=== PATIENT | female | born 1965 | race Caucasian/White ===

== ENCOUNTER → 2018-11-19 | Outpatient (CLI) | payer OTHER ==
--- NOTE | 2018-11-19 10:15 | RAD ---
Chest radiograph 11/19/2018 12:00 AM INDICATION: Productive cough since April COMPARISON: None available TECHNIQUE: Frontal and lateral views of the chest are provided. FINDINGS: The cardiomediastinal silhouette is within normal limits. There are no pleural effusions. There is no pulmonary vascular congestion. There is no pneumothorax. The lungs are clear. Mild bronchial wall thickening may be seen with bronchitis. No significant osseous abnormality is identified. IMPRESSION: Suspect bronchitis without focal airspace consolidation. Electronically signed by: Gaby Willett MD (11/19/2018 10:12 AM) [id number]
== END | disposition home or self-care (01) ==
LOC: PMG 09:35
PROVIDERS: ATTEND Physician Assistant
DX: R05 Cough (principal)
CPT/HCPCS: 71046